=== PATIENT | female | born 1965 | race Asian ===

== ENCOUNTER → 2024-04-04 | Outpatient (CLI) | payer BC ==
[2024-04-04 15:56] LABS: EOSINOPHILS % 2.4 % (0.0-5.0); HEMATOCRIT. 40.9 % (36.0-48.0); HEMOGLOBIN. 13.2 g/dL (12.0-16.0); MEAN CORPUSCULAR HEMOGLOBIN 27.3 pg (28.0-32.0); MEAN CORPUSCULAR HGB CONC 32.4 g/dL (31.0-37.0); MEAN CORPUSCULAR VOLUME 84.4 fL (81.0-99.0); MEAN PLATELET VOLUME 7.5 fl (7.4-10.4); MONOCYTES % 6.9 % (2.0-8.0); NEUTROPHILS % 52.7 % (40.0-76.0); PLATELET 317 x1000/uL (130-400); RED BLOOD CELL COUNT 4.84 mill/uL (4.2-5.4); RED CELL DISTRIBUTION WIDTH 13.7 % (11.6-14.6); WHITE BLOOD COUNT 7.3 x1000/uL (4.5-11.0)
[2024-04-04 16:00] LABS: CLARITY URINE CLEAR (CLEAR); COLOR URINE YELLOW (YELLOW); GLUCOSE URINE NEGATIVE (NEGATIVE); KETONES URINE NEGATIVE (NEGATIVE); LEUKOCYTE ESTERASE URINE TRACE (NEGATIVE); NITRITE URINE NEGATIVE (NEGATIVE); OCCULT BLOOD URINE NEGATIVE (NEGATIVE); PH URINE 5.5 (4.5-8.0); PROTEIN URINE NEGATIVE (NEGATIVE); SPECIFIC GRAVITY URINE 1.013 (1.005-1.030); UROBILINOGEN URINE 0.2 E.U./dL (0.2-1.0)
[2024-04-04 16:03] LABS: CHLORIDE 104 mEq/L (98-107); POTASSIUM 3.8 mEq/L (3.5-5.1); SODIUM 139 mEq/L (136-145)
[2024-04-04 16:04] LABS: CALCIUM 9.9 mg/dL (8.7-10.4); CARBON DIOXIDE 27 mEq/L (21-32)
[2024-04-04 16:09] LABS: CREATININE 0.6 mg/dL (0.6-1.0); GLUCOSE 98 mg/dL (70-105); TRIGLYCERIDE 185 mg/dL (0-150); UREA NITROGEN BLOOD 11 mg/dL (9-23)
[2024-04-04 16:10] LABS: LDL CHOLESTEROL 145 mg/dL (5-100)
[2024-04-04 16:11] LABS: ALANINE AMINOTRANSFERASE 27 IU/L (10-49); ALBUMIN 4.7 g/dL (3.2-4.8); ASPARTATE AMINOTRANSFERASE 31 IU/L (<34); BILIRUBIN TOTAL 0.3 mg/dL (0.1-1.0); CHOLESTEROL 231 mg/dL (<200); HDL CHOLESTEROL 56 mg/dL (>65); PROTEIN TOTAL 7.9 g/dL (6.0-8.3)
[2024-04-04 16:28] LABS: BACTERIA URINE NONE SEEN; RBC URINE NONE SEEN /hpf (0-2); SQUAMOUS EPITHELIAL CELL URINE RARE /lpf (RARE/1+); WBC URINE 0-2 /hpf (0-2)
== END | disposition home or self-care (01) ==
LOC: LAB 15:15
PROVIDERS: ATTEND Internal Medicine
DX: Z00.00 Encounter for general adult medical examination without abnormal findings (principal); R73.03 Prediabetes; E78.5 Hyperlipidemia, unspecified
CPT/HCPCS: 36415; 80053; 80061; 81003; 83036; 85025

== ENCOUNTER → 2024-09-06 | Outpatient (CLI) | payer BC ==
[2024-09-06 11:09] LABS: CARBON DIOXIDE 25 mEq/L (21-32); CHLORIDE 101 mEq/L (98-107); POTASSIUM 3.9 mEq/L (3.5-5.1); SODIUM 137 mEq/L (136-145)
[2024-09-06 11:10] LABS: CALCIUM 9.2 mg/dL (8.7-10.4)
[2024-09-06 11:15] LABS: CREATININE 0.6 mg/dL (0.6-1.0); GLUCOSE 95 mg/dL (70-105); TRIGLYCERIDE 187 mg/dL (0-150); UREA NITROGEN BLOOD 13 mg/dL (9-23)
[2024-09-06 11:16] LABS: ALANINE AMINOTRANSFERASE 31 IU/L (10-49); ASPARTATE AMINOTRANSFERASE 27 IU/L (<34); LDL CHOLESTEROL 143 mg/dL (5-100)
[2024-09-06 11:17] LABS: ALBUMIN 4.8 g/dL (3.2-4.8); BILIRUBIN TOTAL 0.3 mg/dL (0.1-1.0); CHOLESTEROL 226 mg/dL (<200); HDL CHOLESTEROL 52 mg/dL (>65); PROTEIN TOTAL 8.1 g/dL (6.0-8.3)
== END | disposition home or self-care (01) ==
LOC: LAB 10:05
PROVIDERS: ATTEND Internal Medicine
DX: E78.5 Hyperlipidemia, unspecified (principal); R73.03 Prediabetes
CPT/HCPCS: 36415; 80053; 80061; 83036

== ENCOUNTER → 2024-12-09 | Outpatient (CLI) | payer BC ==
[2024-12-09 09:24] LABS: CREATININE 0.6 mg/dL (0.6-1.0); TRIGLYCERIDE 99 mg/dL (0-150); UREA NITROGEN BLOOD 13 mg/dL (9-23)
[2024-12-09 09:25] LABS: LDL CHOLESTEROL 165 mg/dL (5-100)
[2024-12-09 09:26] LABS: ASPARTATE AMINOTRANSFERASE 28 IU/L (<34); BILIRUBIN TOTAL 0.5 mg/dL (0.1-1.0); PROTEIN TOTAL 8.0 g/dL (6.0-8.3)
== END | disposition home or self-care (01) ==
LOC: LAB 08:22
PROVIDERS: ATTEND Internal Medicine
DX: E78.5 Hyperlipidemia, unspecified (principal); R73.03 Prediabetes
CPT/HCPCS: 36415; 80053; 80061; 83036

== ENCOUNTER → 2025-03-12 | Outpatient (CLI) | payer BC ==
[2025-03-12 12:15] LABS: CREATININE 0.6 mg/dL (0.6-1.0)
[2025-03-12 12:16] LABS: LDL CHOLESTEROL 85 mg/dL (5-100); TRIGLYCERIDE 112 mg/dL (0-150); UREA NITROGEN BLOOD 9 mg/dL (9-23)
[2025-03-12 12:17] LABS: ASPARTATE AMINOTRANSFERASE 32 IU/L (<34)
[2025-03-12 12:18] LABS: BILIRUBIN TOTAL 0.5 mg/dL (0.1-1.0); PROTEIN TOTAL 7.7 g/dL (6.0-8.3)
== END | disposition home or self-care (01) ==
LOC: LAB 10:21
PROVIDERS: ATTEND Internal Medicine
DX: E78.5 Hyperlipidemia, unspecified (principal)
CPT/HCPCS: 36415; 80053; 80061